=== PATIENT | female | born 1985 | race Caucasian/White ===

== ENCOUNTER → 2024-02-08 13:09 | Outpatient (REF) | payer OTHER, SELFPAY | LOC: WDC 13:09 | PROVIDERS: ATTENDING PHYSICIAN Family Medicine | DX: Z12.31 Encounter for screening mammogram for malignant neoplasm of breast (principal) | CPT/HCPCS: 77063; 77067 ==

== ENCOUNTER 2024-07-14 15:04 | Emergency (ER) | payer OTHER, SELFPAY ==
[2024-07-14 15:05] VITALS: BP 146/93
[2024-07-14 15:18] LABS: Glucose - Point of Care 123 mg/dl (70-99)
--- NOTE | 2024-07-14 16:15 | ED.GENMED ---
History of Present Illness
General
Chief Complaint: Visual Problem
Time Seen by Provider: 07/14/24 15:51
History of Present Illness
History of Present Illness:
39-year-old female without significant past medical history presenting to the emergency department for blurred vision. Patient reports she had 2 episodes today, isolated, of blurred vision. She notes that the symptoms lasted a few minutes and then
it resolved. Denies any additional associated neurologic symptoms. Denies weakness, numbness to extremities. Does note some family history of MS. Reports in the past few nights she has been having episodes where she wakes up sweating. Otherwise
denies chest pain, difficulty breathing, abdominal pain. She is currently asymptomatic. Reports that she went to the eye doctor about a month ago because she had previously had Lasix about 20 years ago, reports normal exam.
Phy Exam
Physical Exam
Physical Exam:
General: Well-appearing, no clinical signs of dehydration, nontoxic and in no acute distress
HEENT: protecting airway, pupils equal and reactive, extraocular movements intact
Neck: appears supple
CV: Normal heart rate, regular rhythm
Resp: No accessory muscle use, no increased work of breathing, lungs clear to auscultation bilaterally
Abd: no distention
Extremities: No deformities, no swelling, no erythema
Neuro: alert, no focal neurologic deficit
: deferred
Rectal: deferred
Psych: Normal affect
Skin: Intact
Course
Orders/Labs/Results
Orders:
Orders
07/14/24 16:03
CT Head W/o Iv Contrast Urgent
Comment:
Reason For Exam: blurred vision
07/14/24 16:18
Complete Blood Count/With Diff Urgent
Comprehensive Metabolic Panel Urgent
07/14/24 16:22
Test Result ONCE
07/14/24 16:23
Beta Hcg Urine Qualitative Screen [HCG, Urine Qualitative Screen] Urgent
Date Specimen was Collected: 07/14/24
Time Specimen was Collected: 16:22
Abnormal Lab Results
07/14/24 07/14/24
15:11 16:18
RBC 3.82 L 10^6/uL
(4.20-5.40)
Hgb 11.7 L g/dL
(12.0-16.0)
Hct 34.9 L %
(37.0-47.0)
MPV 10.7 H fL
(7.4-10.4)
POC Glucose 123 H mg/dl
(70-99)
07/14/24 16:18
07/14/24 16:18
Vital Signs
Initial and Last Documented VS:
Initial Vital Signs
Temp Pulse Resp BP Pulse Ox
98.2 F 74 20 146/93 99
07/14/24 15:05 07/14/24 15:05 07/14/24 15:05 07/14/24 15:05 07/14/24 15:05
Last Documented Vital Signs
Temp Pulse Resp BP Pulse Ox
98.2 F 54 18 115/63 99
07/14/24 15:05 07/14/24 19:13 07/14/24 19:13 07/14/24 19:13 07/14/24 19:13
MDM/Problems Addressed
MDM/Problems Addressed:
39-year-old female presenting to the emergency department for 2 episodes of blurred vision, resolved. Vital signs are normal.
On exam, patient resting comfort no acute distress or discomfort. Unremarkable neurologic exam, no focal neurologic deficits. Patient currently denying any acute visual changes. Unclear etiology of symptoms, given resolution. Lower suspicion for
acute CVA, no stroke risk factors. Will screen with CT brain imaging. Underlying neurologic process such as MS is a consideration, so ultimately feel patient will require outpatient follow-up and likely MRI imaging. Patient notes that she was
having night sweats, so will also screen with CBC and chemistry panel to ensure no abnormality.
19:50- CT brain without acute intracranial abnormality. Labs are unremarkable. At this time feel stable for discharge, however with interval follow-up for possible MRI imaging. Return precautions discussed and patient verbalized understanding
*Critical Care Note
Total Time (30-74mins, 75-104mins- exclusive of procedures): Not Applicable
ED Attending Note
-
Portions of this chart may have been created with voice recognition software.� Occasional wrong word or��sound alike� substitutions may have occurred due to the inherent limitations of voice recognition software.
Discharge Plan
Departure
Prescriptions:
No Action
PNV cmb#95-ferrous fumarate-FA [] 1 EACH tablet
1 ea PO DAILY
amoxicillin 500 MG capsule
500 mg PO TID
acetaminophen 325 MG tablet
650 mg PO Q4HPRN PRN (Reason: mild pain) 0RF
ferrous sulfate [FeroSul] 325 MG tablet
325 mg PO DAILY 0RF
ibuprofen 600 MG tablet
600 mg PO Q4HPRN PRN (Reason: moderate pain/cramps) 0RF
Referrals:
Katelyn Lo MD [Family Provider] -
Interventions
Interventions:
*Risk Screen - Suicide Last Done: 07/14/24 16:17
*General Assessment Last Done: 07/14/24 15:05
*Neglect/Abuse Screening Last Done: 07/14/24 16:17
*ED COVID-19 Vaccine History Last Done: 07/14/24 16:17
ED- Neurological Assessment Last Done: 07/14/24 17:08
ED-EENT Assessment Last Done: 07/14/24 17:08
ED Swallowing Screen Last Done: 07/14/24 17:08
Discharge Date and Time
Print Language: GAMBIAN
[2024-07-14 16:31] LABS: HCG, Urine Qualitative Screen Negative
[2024-07-14 16:35] LABS: % Basophils 0.8 % (0-2); % Eosinophils 1.5 % (0-6); % Immature Granulocytes 0.3 % (0-0.5); % Lymphocytes 26.2 % (20.5-51.1); % Monocytes 6.5 % (1.7-9.3); % Neutrophils 64.7 % (42.2-75.2); Absolute Basophils 0.1 10^3/uL (0-0.2); Absolute Eosinophils 0.1 10^3/uL (0-0.7); Absolute Lymphocytes 1.6 10^3/uL (1.2-3.4); Absolute Monocytes 0.4 10^3/uL (0.1-0.6); Hematocrit 34.9 % (37.0-47.0); Hemoglobin 11.7 g/dL (12.0-16.0); Mean Corp Hgb Conc. 33.5 g/dL (33.0-37.0); Mean Corpuscular Hgb 30.6 pg (27.0-31.0); Mean Corpuscular Volume 91.4 fL (81.0-99.0); Mean Platelet Volume 10.7 fL (7.4-10.4); Nucleated Red Blood Cells % 0 %; Platelet Count 355 10^3/uL (130-400); Red Blood Cell Count 3.82 10^6/uL (4.20-5.40); Red Cell Dist. Width 12.5 % (11.5-14.5); White Blood Cell Count 6.2 10^3/uL (4.8-10.8)
[2024-07-14 16:44] LABS: ALT (SGPT) 16 U/L (0-35); AST (SGOT) 23 U/L (14-36); Albumin 4.6 g/dl (3.5-5.0); Alkaline Phosphatase 51 U/L (38-126); Blood Urea Nitrogen 13 mg/dl (7-17); Calcium 9.5 mg/dl (8.4-10.2); Carbon Dioxide 26 mmol/L (22-30); Chloride 107 mmol/L (98-107); Glucose 92 mg/dl (70-99); Sodium 141 mmol/L (135-145); Total Bilirubin 0.4 mg/dl (0.2-1.3); Total Protein 7.1 g/dl (6.3-8.2); eGFR > 60.00
[2024-07-14 19:13] VITALS: BP 115/63
== END 2024-07-14 19:57 | disposition home or self-care (01) ==
LOC: EMR 15:04
PROVIDERS: EMERGENCY PHYSICIAN Student in an Organized Health Care Education/Training Program; FAMILY PHYSICIAN Internal Medicine Endocrinology, Diabetes & Metabolism
DX: H53.8 Other visual disturbances (principal)
CPT/HCPCS: 99284; 70450; 80053; 81025; 82962; 85025